=== PATIENT | female | born 1950 | race Caucasian/White ===

== ENCOUNTER 2019-08-17 18:07 | Inpatient (IN) | payer OTHER, MEDICAID ==
[~2019-08-17] VITALS: Ht 149.9 cm; Wt 60.3 kg
--- NOTE | 2019-08-17 18:14 | NUR ---
PT BIB [facility] TO ER BED 6
[2019-08-17 18:15] VITALS: BP 117/50
[2019-08-17] MEDS ORDERED: NACL 0.9% 500 ML IV ONE (18:20)
[2019-08-17] MEDS ORDERED: MORPHINE SULFATE 2 MG/ML SYR IVP ONE (18:20)
--- NOTE | 2019-08-17 18:46 | NUR ---
Xray at bedside
--- NOTE | 2019-08-17 19:22 | NUR ---
69 YEAR OLD FEMALE BIBA FROM HOME, PER DAUGHTER HUY PATIENT REFUSED TO STAY INSIDE OF BED AND ROLLED OFF, CAUSING LEFT HIP PAIN X LAST NIGHT. HUY ALSO STATES THAT PATIENT HAS HAD A RASH ON ABDOMEN SINCE SATURDAY. PER HUY PATIENT IS DOES NOT SEEM ALTERED AND IS ACTING NORMAL, BUT PATIENT IS DEAF AND ROMANIAN SPEAKING. PATIENT ALERT AND AWAKE, BREATHING EVEN AND UNLABORED, SKIN WARM AND DRY. PT ATTACHED TO MONITOR, VSS. BED IN LOWEST POSITION, LOCKED, BED RAIL UPX2. HUY CONTACTED BY PHONE. PMH - HTN, DM2, CELLULITIS ALLERGIES - NKA
[2019-08-17 19:58] LABS: BASOPHILS % (AUTO) 0.3 % (0.0-2.0); EOSINOPHILS # (AUTO) 0.1 K/uL (0-0.4); EOSINOPHILS % (AUTO) 0.4 % (0.0-4.0); HEMATOCRIT 36.9 % (36-48); HEMOGLOBIN 12.1 g/dL (12.0-16.0); LYMPHOCYTES # (AUTO) 1.2 K/uL (2.5-16.5); LYMPHOCYTES % (AUTO) 8.2 % (20.5-51.1); MEAN CORPUSCULAR HEMOGLOBIN 30 pg (27-31); MEAN CORPUSCULAR HGB CONC 33 g/dL (33-37); MEAN CORPUSCULAR VOLUME 91.1 fL (80-94); MONOCYTES # (AUTO) 1.3 K/uL (0.8-1.0); MONOCYTES % (AUTO) 8.5 % (1.7-9.3); NEUTROPHILS # (AUTO) 12.5 K/uL (1.8-7.7); NEUTROPHILS % (AUTO) 82.6 % (42.2-75.2); PLATELET COUNT (AUTO) 186 K/uL (140-450); RED BLOOD CELL COUNT(AUTO) 4.05 MIL/uL (4.20-5.40); RED CELL DISTRIBUTION WIDTH 13.4 % (11.6-13.7); WHITE BLOOD COUNT (AUTO) 15.2 K/uL (4.8-10.8)
[2019-08-17 20:09] LABS: PROTHROMBIN TIME 11.1 secs (10.8-13.4)
[2019-08-17 20:19] LABS: ANION GAP 13.8 (8-16); CARBON DIOXIDE 25.1 mmol/L (21-32); CHLORIDE 102 mmol/L (98-107); CREATININE 1.2 mg/dL (0.6-1.3); GLUCOSE 312 mg/dL (74-106); POTASSIUM 3.9 mmol/L (3.5-5.1); SODIUM SERUM 137 mmol/L (136-145); UREA NITROGEN, BLOOD 15 mg/dL (7-18)
--- NOTE | 2019-08-17 20:32 | NUR ---
Dr. Simpson examining patient.
[2019-08-17] MEDS ORDERED: NACL 0.9% 1,500 ML IV ONE (20:40)
[2019-08-17 20:42] LABS: ALBUMIN 1.4 g/dL (3.4-5.0); ASPARTATE AMINOTRANSFERASE 29 U/L (15-37); TOTAL BILIRUBIN 0.5 mg/dL (0.0-1.0)
--- NOTE | 2019-08-17 20:44 | NUR ---
PATIENT ALERT AND AWAKE, BREATHING EVEN AND UNLABORED. PER HUY ON PHONE PATIENT TOOK CLINDAMYCIN AND AMOXICILLIN SINCE SATURDAY. LENORAD MADE AWARE
[2019-08-17] MEDS ORDERED: cefTRIAXone 1,000 MG VIAL ONE (20:49)
[2019-08-17 21:04] LABS: APPEARANCE,URINE CLEAR (CLEAR); BILIRUBIN,URINE NEGATIVE (NEGATIVE); BLOOD, URINE NEGATIVE (NEGATIVE); COLOR,URINE YELLOW (YELLOW); LEUKOCYTE ESTERASE ,URINE NEGATIVE (NEGATIVE); NITRITE, URINE NEGATIVE (NEGATIVE); UGLUCOSE 3+ (NEGATIVE)
[2019-08-17] MEDS ORDERED: SITA25TA3 PO (21:13)
[2019-08-17] MEDS ORDERED: METF-350 PO (21:13)
--- NOTE | 2019-08-17 21:40 | NUR ---
PATIENT ALERT AND AWAKE, BREAHTING EVEN AND UNLABORED
--- NOTE | 2019-08-17 22:40 | NUR ---
ADMITTED 69 Y/0 FEMALE. RESPIRATION EVEN AND UNLABORED. ON 02 AT 2LPM VIA NC WITH O2 AT 92%. NO SOB. NO PAIN NOTED. IV SITE TO RH 20G. INTACT. INITIAL ASSESSMENT DONE PER PROTOCOL. NOTED SEVERE SKIN RASH AT THE ABDOMEN. NOTED OPEN WOUND ON L BUTTOCKS. RASHES ALL OVER ABDOMEN AREA NOTED. PATIENT IS DEAF. CALL LIGHT WITHIN REACH. WILL CONTINUE TO MONITOR.
--- NOTE | 2019-08-17 22:40 | NUR ---
Patient will be admitted to care of DR MURRY. Admited to TELE. Will go to room 120A. Belongings list completed. Report to LOLY GIL.
[2019-08-17] MEDS: NACL 0.9% 1,000 ML IV SCH (22:54)
[2019-08-17] MEDS ORDERED: ACETAMINOPHEN 325 MG TAB PO PRN (22:55)
[2019-08-17] MEDS ORDERED: MORPHINE SULFATE 2 MG/ML SYR IVP PRN (22:55)
[2019-08-17] MEDS ORDERED: ONDANSETRON 4 MG/2 ML VIAL IM/IVP PRN (22:55)
[2019-08-17] MEDS ORDERED: HYDROcodone/APAP 5/325 MG 1 TAB TAB PO PRN (22:55)
[2019-08-17] MEDS ORDERED: DOCUSATE SODIUM 100 MG GELCAP PO PRN (22:55)
[2019-08-17 23:58] LABS: MAGNESIUM 1.3 mg/dL (1.8-2.4); THYROID STIMULATING HORMONE 0.49 uIU/mL (0.34-3.74)
--- NOTE | 2019-08-18 00:10 | NUR ---
IV SITE TO RH WAS DISLODGED ACCIDENTALLY. WILL RE-INSERT NEW IV LINE. ATTEMPTED X3 WITH GOOD BLOOD RETURN. TOLERATED PROCEDURE WELL.
--- NOTE | 2019-08-18 02:00 | NUR ---
PATIENT IS ASLEEP. NO SOB. CALL LIGHT WITHIN REACH WILL CONTINUE TO MONITOR.
[2019-08-18] MEDS ORDERED: DEXTROSE 50% 50 ML SYR IVP PRN (02:25)
[2019-08-18] MEDS: MAG SULF 2000 MG/WATER PREMIX 50 ML IV SCH ×2 (03:40→06:43)
[2019-08-18 04:00] VITALS: BP 125/57
--- NOTE | 2019-08-18 04:00 | NUR ---
V/S TAKEN AND RECORDED. NO C/O PAIN. CALL LIGHT WITHIN REACH. WILL CONTINUE TO MONITOR.
[2019-08-18] MEDS: NACL 0.9% 1,000 ML IV SCH (05:06)
[2019-08-18] MEDS ORDERED: CLINDAMYCIN 600 MG/4 ML VIAL ONE (05:29)
[2019-08-18] MEDS: CLINDAMYCIN 600 MG in DEXTROSE 5% 50 ML IV SCH ×3 (05:33→20:38)
[2019-08-18] MEDS: BLOOD GLUCOSE MONITORING 1 DEV DEV FS SCH ×4 (06:07→20:38)
[2019-08-18] MEDS: INSULIN LISPRO SLIDING SCALE 100 UNITS/ML VIAL SUBQ PRN ×3 (06:12→17:36)
--- NOTE | 2019-08-18 07:00 | NUR ---
PATIENT IS STABLE. WILL ENDORSE TO AM SHIFT RN FOR CONTINUITY OF CARE.
[2019-08-18 07:18] LABS: BASOPHILS # (AUTO) 0.1 K/uL (0.00-0.22); BASOPHILS % (AUTO) 0.3 % (0.0-2.0); EOSINOPHILS # (AUTO) 0.1 K/uL (0-0.4); EOSINOPHILS % (AUTO) 0.6 % (0.0-4.0); HEMATOCRIT 37.5 % (36-48); HEMOGLOBIN 12.2 g/dL (12.0-16.0); LYMPHOCYTES # (AUTO) 1.8 K/uL (2.5-16.5); LYMPHOCYTES % (AUTO) 9.6 % (20.5-51.1); MEAN CORPUSCULAR HEMOGLOBIN 30 pg (27-31); MEAN CORPUSCULAR HGB CONC 32 g/dL (33-37); MEAN CORPUSCULAR VOLUME 92.4 fL (80-94); MONOCYTES # (AUTO) 1.4 K/uL (0.8-1.0); MONOCYTES % (AUTO) 7.5 % (1.7-9.3); PLATELET COUNT (AUTO) 187 K/uL (140-450); RED BLOOD CELL COUNT(AUTO) 4.06 MIL/uL (4.20-5.40); RED CELL DISTRIBUTION WIDTH 13.6 % (11.6-13.7); WHITE BLOOD COUNT (AUTO) 18.3 K/uL (4.8-10.8)
[2019-08-18 07:58] LABS: CARBON DIOXIDE 21.9 mmol/L (21-32); CHLORIDE 104 mmol/L (98-107); CREATININE 1.1 mg/dL (0.6-1.3); GLUCOSE 288 mg/dL (74-106); POTASSIUM 3.9 mmol/L (3.5-5.1); SODIUM SERUM 138 mmol/L (136-145); UREA NITROGEN, BLOOD 13 mg/dL (7-18)
[2019-08-18 08:00] VITALS: BP 132/55
[2019-08-18 08:11] LABS: CHOL/HDL RATIO 5.7 (1-4.5)
[2019-08-18] MEDS: metFORMIN 850 MG TAB PO SCH ×2 (09:27→17:35)
--- NOTE | 2019-08-18 09:41 | NUR ---
PATIENT HAS BEEN SCREENED AND CATEGORIZED HIGH NUTRITION RISK. PATIENT WILL BE SEEN WITHIN 1-2 DAYS OF ADMISSION. 08/18/19-08/19/[address]
--- NOTE | 2019-08-18 14:57 | NUR ---
08/18/19 RD INITIAL ASSESSMENT COMPLETED PLEASE REFER TO NUTRITION ASSESSMENT UNDER CARE ACTIVITY FOR ESTIMATED NUTRITIONAL NEEDS. 1. RECOMMEND MECHANICAL SOFT CCHO 60GM DIET TOLERATED 2. RECOMMEND KAYLEN BID FOR WOUND HEALING 3. RECOMMEND GLUCERNA BID FOR WOUND HEALING 4. PROVIDE ASSISTANCE WITH MEALS IF NEEDED 5. RD PROVIDED NUTRITION EDUCATION ON WOUNDS/PRESSURE ULCER 6. RD TO FOLLOW-UP 3-5 DAYS, MODERATE RISK JOAO BETH RD
[2019-08-18 15:59] VITALS: BP 106/71
--- NOTE | 2019-08-18 19:15 | NUR ---
RECEIVED BEDSIDE REPORT FROM DAY SHIFT NURSE, SAMUEL PAYNE RESPIRATION EVEN AND UNLABORED WITH ROOM AIR. NO SOB. NO PAIN NOTED. IV SITE TO LFA 22G. INTACT, PATENT, AND ASYMPTOMATIC. INITIAL ASSESSMENT DONE PER PROTOCOL. NOTED SEVERE SKIN RASH AT THE ABDOMEN. NOTED OPEN WOUND ON L BUTTOCKS. RASHES ALL OVER ABDOMEN AREA NOTED. PATIENT IS DEAF. CALL LIGHT WITHIN REACH. WILL CONTINUE TO MONITOR.
--- NOTE | 2019-08-18 19:52 | NUR ---
GIVEN ROCEPHIN MD ORDERED. PT TOLERATED WELL.
[2019-08-18 20:00] VITALS: BP 114/44
--- NOTE | 2019-08-18 20:39 | NUR ---
GIVEN CLEOCIN MD ORDERED. PT TOLERATED WELL.
--- NOTE | 2019-08-18 22:38 | NUR ---
PT SLEEPING IN BED COMFORTABLY. NO ACUTE DISTRESS NOTED.
[2019-08-19] VITALS: BP 120/58
--- NOTE | 2019-08-19 | NUR ---
VS WITHIN PT'S BASELINE. WILL CONTINUE TO MONITOR.
--- NOTE | 2019-08-19 02:10 | NUR ---
PT SLEEPING IN BED COMFORTABLY. NO ACUTE DISTRESS NOTED.
[2019-08-19 04:00] VITALS: BP 128/61
[2019-08-19] MEDS: CLINDAMYCIN 600 MG in DEXTROSE 5% 50 ML IV SCH ×3 (04:00→21:00)
--- NOTE | 2019-08-19 04:00 | NUR ---
VS CHECKED, WITHIN PT'S BASELINE. GIVEN CLEOCIN MD ORDERED. PT TOLERATED WELL.
[2019-08-19] MEDS: INSULIN LISPRO SLIDING SCALE 100 UNITS/ML VIAL SUBQ PRN ×3 (06:06→21:54)
[2019-08-19] MEDS: BLOOD GLUCOSE MONITORING 1 DEV DEV FS SCH ×4 (06:06→21:11)
--- NOTE | 2019-08-19 06:06 | NUR ---
BS CHECKED, 251, GIVEN INSULIN SLIDING SCALE.
[2019-08-19 07:32] LABS: HEMATOCRIT 37.1 % (36-48); HEMOGLOBIN 12.1 g/dL (12.0-16.0); MEAN CORPUSCULAR HEMOGLOBIN 30 pg (27-31); MEAN CORPUSCULAR HGB CONC 33 g/dL (33-37); MEAN CORPUSCULAR VOLUME 91.5 fL (80-94); PLATELET COUNT (AUTO) 157 K/uL (140-450); RED BLOOD CELL COUNT(AUTO) 4.05 MIL/uL (4.20-5.40); RED CELL DISTRIBUTION WIDTH 13.5 % (11.6-13.7); WHITE BLOOD COUNT (AUTO) 20.4 K/uL (4.8-10.8)
[2019-08-19 08:20] LABS: CARBON DIOXIDE 22.9 mmol/L (21-32); CHLORIDE 103 mmol/L (98-107); CREATININE 1.4 mg/dL (0.6-1.3); GLUCOSE 244 mg/dL (74-106); POTASSIUM 3.9 mmol/L (3.5-5.1); SODIUM SERUM 133 mmol/L (136-145); UREA NITROGEN, BLOOD 16 mg/dL (7-18)
[2019-08-19 08:33] LABS: MAGNESIUM 2.2 mg/dL (1.8-2.4); PHOSPHORUS 3.4 mg/dL (2.5-4.9)
[2019-08-19] MEDS: metFORMIN 850 MG TAB PO SCH ×2 (08:34→19:03)
--- NOTE | 2019-08-19 08:34 | NUR ---
Patient resting comfortably in bed with no distress noted. Scheduled medications given as ordered. Patient stable at this time.
[2019-08-19 08:40] VITALS: BP 119/61
[2019-08-19 09:32] LABS: BASOPHILS % (MANUAL) 0 % (0-2); EOSINOPHILS % (MANUAL) 1 % (0-4); LYMPHOCYTES % (MANUAL) 10 % (20-46); MONOCYTES % (MANUAL) 3 % (5-12)
--- NOTE | 2019-08-19 10:50 | NUR ---
Patient asleep with no distress noted at this time.
--- NOTE | 2019-08-19 11:10 | NUR ---
WOUND CARE EVALUATION NOTE: REASON FOR EVALUATION: LOW LETICIA SCALE AND MULTIPLE WOUNDS SKIN ASSESSMENT DONE WITH THIS 69 Y/O FEMALE PT ADMITTED TO [facility] WITH INITIAL DX LEFT HIP PAIN. PAST MEDICAL HX INCLUDES HTN, DM, HEART DISEASE, DEAF AND PT. ADMITTED WITH MULTIPLE PRESSURE ULCER WOUNDS. ALL ABOVE INFORMATION OBTAINED FROM ADMISSION H&P. PT IS AWAKE. COMMUNICATED WITH DRAWING PICTURES. PT SKIN IS WARM AND MOIST, BLE HAIR GROWTH, NO EDEMA. DORSAL PEDAL PULSES PRESENT AND NORMAL. CAPILLARY REFILLED < 2 SEC. X 10 TOES. INCONTINENT OF BOWEL AND BLADDER X1 DURING ASSESSMENT. GENERAL SKIN RASHES WITH RAISE PUMPS FROM NECK DOWN. PT SCRATCHES HER SKIN DURING ASSESSMENT. PLAN OF CARE DISCUSSED WITH PRIMARY RN AND DR. CATHERINE. INTEGUMENTARY: -GENERAL SKIN RASHES WITH RAISE PUMPS FROM NECK DOWN TO TRUNK OF BODY AND ALL EXTREMITIES -PRESSURE ULCER INJURY STAGE 2, LEFT HIP 6X5X0.1CM, WOUND BED IS PINK, NO ODOR, MOIST, JANELLE-WOUND SKIN WITH CONTACT DERMATITIS WITH ERYTHEMA -PRESSURE ULCER INJURY STAGE 4, LEFT ISCHIUM 3X2.5X0.8 CM WOUND BED 100% GRANULATING TISSUE, MOIST, NO ODOR, JANELLE-WOUND SKIN MAD RED AND INTACT. -DIABETIC ULCER UN-STAGEABLE TO LEFT HALLUX 1X1CM, 100% STABLE ESCHAR -PRESSURE ULCER INJURY UN-STAGEABLE, SACROCOCCYX 3X2CM, 100% STABLE ESCHAR JANELLE-WOUND SKIN MOIST -PRESSURE ULCER INJURY UN-STAGEABLE, RIGHT HIP 2 SITES WITH LARGEST 2X1CM, 100% STABLE ESCHAR JANELLE-WOUND SKIN DRY AND SMALLEST 0.8X0.5CM, 100% STABLE ESCHAR JANELLE-WOUND SKIN DRY -DIABETIC ULCER UN-STAGEABLE TO RIGHT PLANTAR AREA TO 5TH METATARSAL 3X3.5CM, 100% STABLE ESCHAR RECOMMENDATIONS: -PLEASE CHECK DRUG REACTIONS/INTERACTIONS -APPLY HYDROCORTISONE CREAM TO RASHES AREA BID AND BORDEREAU CLERK -CLEANSE LEFT BUTTOCK AND LEFT HIP OPEN WOUNDS WITH WOUND CLEANSING SOLUTION AND APPLY HYDROGELGEL COVER WITH DRY DRESSING QD AND PRN IF SOILING -PAINT ALL UN-STAGEABLE ULCERS WITH BETADINE SOLUTION TO SACRAL, RIGHT HIP, RIGHT PLANTAR AND LEFT HALLUX AREAS BID AND OPEN TO AIR -APPLY HEEL PROTECTORS TO BOTH HEELS AT ALLTIMES WHEN IN BED -OFFLOAD BILATERAL HEELS BY PLACING PILLOWS UNDER CALVES UNLESS OTHERWISE CONTRAINDICATED -PRESSURE REDISTRIBUTION SURFACE THERAPY -TURN AND REPOSITION Q2H, OFFLOAD SACRALCOCCYX AND BUTTOCKS BY TURNING RIGHT AND LEFT -CONTINUE TO FOLLOW RD RECOMMENDATIONS ALL ABOVE RECOMMENDATIONS DISCUSSED WITH PRIMARY RN. PLEASE CONTACT WOUND CARE NURSE FOR ANY QUESTION AND CHANGE OF WOUND CONDITION. Addendum: 08/19/19 at 1213 by Joana Murillo RN (Grace) RECOMMEND SNF PLACEMENT OR HOME HEALTH CARE FOLLOW UP WOUND CARE
--- NOTE | 2019-08-19 12:02 | NUR ---
DC PLANIN YRS OLD FEMALE PATIENT WAS ADMITTED FROM HOME WITH A DX OF CVA SEPSIS AND GLUTEAL CELLULITES. PT HAS A HX OF DM, HTN HLD, HEART DISEASE AND SACRAL WOUND. CXR SHOWED CARDIOMEGALY LEFT HIP XRAY PROMINENT SCLEROTIC CHANGES ARTHRITIC CHANGES. ,BLOOD AND URINE CULTURE PENDING STARTED ON IV ABX ROCEPHIN , FALL PRECAUTION ,PT EVAL AND WOUND CARE CONSULTED. DC PLAN TO GO HOME WHEN STABLE. Addendum: 08/21/19 at 1042 by Promise Ng CM DC PLANNING: PT HAS A DISCHARGE ORDER TOGO BACK TO [facility] , BUT C-DIFF AND WOUND CULTURE RESULT PENDING, SPOKE WITH DOMINIQUE AT [facility] STATED FOR ISOLATION ROOM NEEDS THE C-DIFF RESULT. CALLED LAB STATED C-DIFF TAKES 2-3 DAYS . CM TO FOLLOW Addendum: 08/21/19 at 1404 by Promise Ng CM DC PLANNING: C-DIFF NEGATIVE PT HAS A DC ORDER TO GO BACK TO [facility] WITH ANTIBIOTICS. CALLED [facility] SPOKE WITH DOMINIQUE CASTANEDA THE C-DIFF RESULT WAITING FOR THE BED CM TO FOLLOW Addendum: 08/22/19 at 1223 by Promise Ng CM DC PLANNING PT IS ACCEPTED AT [facility] ,CAN GO TO ROOM A NUMBER TO GIVE REPORT [phone] ARRANGED TRANSPORT WITH [facility] AT [phone] WARPER FIXER TIME 2 PM RESERVATION # [id number]. NOTIFIED KAREN GIL Addendum: 08/22/19 at 1231 by Promise Ng CM DC PLANNING: [facility] WILL [facility]ER THE PATIENT AT 4:30 PM RESERVATION # [id number] . NOTIFFLACA JONES RN
[2019-08-19 12:10] VITALS: BP 127/66
--- NOTE | 2019-08-19 12:10 | NUR ---
Scheduled IV abx given per order. Checked blood sugar: 241 mg/dl - will cover per sliding scale. Patient stable at this time.
--- NOTE | 2019-08-19 12:57 | NUR ---
GIVEN 4 UNITS OF INSULIN HUMALOG FOR BS 241 SQ. PATIENT TOLERATED WELL. HELPED REGISTRY NURSE TO ADMINISTER PRN SCHEDULED.
[2019-08-19 16:30] VITALS: BP 118/59
[2019-08-19] MEDS: GAUZE TP SCH (16:30)
--- NOTE | 2019-08-19 16:30 | NUR ---
Wound care done per wound care orders. Patient tolerated well.
[2019-08-19] MEDS: SKINTEGRITY HYDROGEL TP SCH (16:36)
--- NOTE | 2019-08-19 16:50 | NUR ---
Checked blood sugar: 127 mg/dl - no coverage required. Patient resting comfortably in bed. Patient stable.
--- NOTE | 2019-08-19 19:05 | NUR ---
Scheduled med given per order. Started new IVF bag as well. Patient stable throughout shift.
[2019-08-19] MEDS: NACL 0.9% 1,000 ML IV SCH (19:08)
--- NOTE | 2019-08-19 19:45 | NUR ---
A/A/O X2.ZIMBABWEAN SPEAKING ONLY.IVF NS @ 40 ML/HR INFUSING WELL.NO INDICATION OF PAIN NOTED.NOTED RASHES ALL OVER HER BODY.INSTRUCTED TO USE CALL LIGHT NEEDED;WITHIN REACH.
[2019-08-19 20:00] VITALS: BP 102/56
--- NOTE | 2019-08-19 21:00 | NUR ---
FINGER STICK BLD [id number].HUMOLOG 2 UNITS SUB Q ADM.DUE MEDS AD. SNACKS GIVEN.
[2019-08-20] VITALS: BP 116/52
--- NOTE | 2019-08-20 | NUR ---
AFEBRILE.V/S STABLE. TELE SHOWED SR.
--- NOTE | 2019-08-20 02:00 | NUR ---
RESTING COMFORTABLY IN NO ACUTE DISTRESS.IVF INFUSING WELL.
--- NOTE | 2019-08-20 04:00 | NUR ---
V/S STABLE. AFEBRILE. TELE SHOWED SR.
[2019-08-20] MEDS: CLINDAMYCIN 600 MG in DEXTROSE 5% 50 ML IV SCH ×3 (04:49→20:46)
[2019-08-20 05:52] VITALS: BP 127/64
[2019-08-20] MEDS: BLOOD GLUCOSE MONITORING 1 DEV DEV FS SCH ×4 (06:13→21:36)
--- NOTE | 2019-08-20 06:13 | NUR ---
FINGER STICK BLD SUGAR 126.
--- NOTE | 2019-08-20 06:45 | NUR ---
ENDORSED IN NO ACUTE DISTRESS.NO S/S OF HYPO/HYPERGLYCEMIA NOTED.SAFETY MAINTAINED.
--- NOTE | 2019-08-20 07:25 | NUR ---
RECEIVED REPORT FROM NIGHT NURSE REGISTRY. PATIENT IN BED ASLEEP, EASILY AROUSABLE BY NAME OR TOUCH. RESPIRATION EVEN AND UNLABORED. SKIN WARM AND DRY TO TOUCH. IV INTACT AND PATENT TO LEFT FOREARM. NO S/S OF DISTRESS NOTED. BED IN LOW POSITION. SAFETY MEASURES IN PLACE. CALL LIGHT WITHIN REACH.
[2019-08-20 07:40] LABS: BASOPHILS # (AUTO) 0.1 K/uL (0.00-0.22); BASOPHILS % (AUTO) 0.3 % (0.0-2.0); EOSINOPHILS # (AUTO) 0.1 K/uL (0-0.4); EOSINOPHILS % (AUTO) 0.6 % (0.0-4.0); HEMATOCRIT 37.2 % (36-48); HEMOGLOBIN 12.3 g/dL (12.0-16.0); LYMPHOCYTES # (AUTO) 1.6 K/uL (2.5-16.5); LYMPHOCYTES % (AUTO) 8.2 % (20.5-51.1); MEAN CORPUSCULAR HEMOGLOBIN 30 pg (27-31); MEAN CORPUSCULAR HGB CONC 33 g/dL (33-37); MEAN CORPUSCULAR VOLUME 91.1 fL (80-94); MONOCYTES # (AUTO) 1.1 K/uL (0.8-1.0); MONOCYTES % (AUTO) 5.6 % (1.7-9.3); NEUTROPHILS # (AUTO) 16.8 K/uL (1.8-7.7); NEUTROPHILS % (AUTO) 85.3 % (42.2-75.2); PLATELET COUNT (AUTO) 144 K/uL (140-450); RED BLOOD CELL COUNT(AUTO) 4.08 MIL/uL (4.20-5.40); RED CELL DISTRIBUTION WIDTH 13.8 % (11.6-13.7); WHITE BLOOD COUNT (AUTO) 19.7 K/uL (4.8-10.8)
[2019-08-20 08:00] VITALS: BP 111/50
[2019-08-20] MEDS: metFORMIN 850 MG TAB PO SCH ×2 (08:05→17:36)
[2019-08-20] MEDS: HYDROCORTISONE 2.5% OINT 30 GM TUBE TP SCH (08:06)
--- NOTE | 2019-08-20 08:30 | NUR ---
PATIENT WITH HOB ELEVATED EATING BREAKFAST. NO S/S OF DISTRESS NOTED. AM MEDICATIONS GIVEN AND TOLERATED WELL.
[2019-08-20 08:44] LABS: MAGNESIUM 1.8 mg/dL (1.8-2.4); PHOSPHORUS 4.1 mg/dL (2.5-4.9)
[2019-08-20 09:07] LABS: ANION GAP 14.1 (8-16); CHLORIDE 105 mmol/L (98-107); CREATININE 1.3 mg/dL (0.6-1.3); GLUCOSE 134 mg/dL (74-106); POTASSIUM 4.1 mmol/L (3.5-5.1); SODIUM SERUM 136 mmol/L (136-145); UREA NITROGEN, BLOOD 20 mg/dL (7-18)
--- NOTE | 2019-08-20 10:27 | NUR ---
Utility Person Note: CAM contacted patient's son to complete assessment [phone] (name is not in face sheet). SW left voicemail. CAM will follow up
--- NOTE | 2019-08-20 10:30 | NUR ---
PATIENT REMAINS STABLE. PATIENT IN BED ASLEEP, EASILY AROUSABLE BY NAME. RESPIRATION EVEN AND UNLABORED. CALL LIGHT WITHIN REACH.
[2019-08-20 12:00] VITALS: BP 133/70
--- NOTE | 2019-08-20 13:00 | NUR ---
PATIENT IN BED, EATING LUNCH. NO S/S OF DISTRESS NOTED.
[2019-08-20] MEDS: SKINTEGRITY HYDROGEL TP SCH (13:01)
[2019-08-20] MEDS: GAUZE TP SCH (13:01)
[2019-08-20 16:00] VITALS: BP 120/55
--- NOTE | 2019-08-20 16:30 | NUR ---
PATIENT REMAINS STABLE. AWAKE AND VERBALLY RESPONSIVE. NO S/S OF DISTRESS NOTED.
--- NOTE | 2019-08-20 18:42 | NUR ---
PATIENT IN BED, EATING DINNER. NO S/S OF DISTRESS NOTED.
--- NOTE | 2019-08-20 19:45 | NUR ---
A/A/O X2. NO INDICATION OF PAIN NOTED. NO SOB.RASHES ALL OVER HER BODY.IVF NS @ 40 ML/HR INFUSING WELL.REFUSED TO EAT HER FOOD TRAY @ THE BS BUT LIKES PO LIQUID. DRESSING ON HER LEFT HIP & LEFT BUTTOCK INTACT. REPOSITIONED.
[2019-08-20 20:00] VITALS: BP 142/69
--- NOTE | 2019-08-20 20:00 | NUR ---
AFEBRILE .TELE SHOWED SR.
[2019-08-20] MEDS: INSULIN LISPRO SLIDING SCALE 100 UNITS/ML VIAL SUBQ PRN (21:36)
--- NOTE | 2019-08-20 21:36 | NUR ---
FINGER STICK BLD SUGAR 156.HUMOLOG 2 UNITS SUB Q ADM.SNACK GIVEN.
[2019-08-20] MEDS: NACL 0.9% 1,000 ML IV SCH (22:35)
[2019-08-21] VITALS: BP 141/69
--- NOTE | 2019-08-21 | NUR ---
CLEAN PT WITH CORPORATE TAX MANAGER.HAD LARGE LOOSE GREENISH STOOL.DRESSING ON HER LEFT HIP & LEFT BUTTOCK CHANGE. REPOSITIONED.
--- NOTE | 2019-08-21 02:00 | NUR ---
RESTING COMFORTABLY IN NO ACUTE DISTRESS.IVF INFUSING WELL.
[2019-08-21 04:00] VITALS: BP 112/64
--- NOTE | 2019-08-21 04:00 | NUR ---
AFEBRILE.V/S STABLE.TELE SHOWED SR WITH BBB.
--- NOTE | 2019-08-21 05:00 | NUR ---
AM CARE RENDERED WITH FISH GRADER.LEFT HIP & LEFT BUTTOCK DRESSING CHANGE ,HAD LARGE LOOSE GREENISH STOOL. REPOSITIONED.
[2019-08-21] MEDS: CLINDAMYCIN 600 MG in DEXTROSE 5% 50 ML IV SCH ×3 (05:32→20:59)
--- NOTE | 2019-08-21 06:50 | NUR ---
IV INFILTRATED & D/C.IV INSERTED ON HER RIGHT HAND WITH ANGIO #22 X3.IVF NS @ 40 ML/HR INFUSING WELL.
--- NOTE | 2019-08-21 07:00 | NUR ---
ENDORSED RESTING COMFORTABLY IN NO ACUTE DISTRESS.NO S/S OF HYPO/HYPERGLYCEMIA NOTED.SAFETY MAINTAINED.
[2019-08-21] MEDS: INSULIN LISPRO SLIDING SCALE 100 UNITS/ML VIAL SUBQ PRN (07:01)
[2019-08-21] MEDS: BLOOD GLUCOSE MONITORING 1 DEV DEV FS SCH ×4 (07:02→21:04)
--- NOTE | 2019-08-21 07:05 | NUR ---
RECEIVED BEDSIDE REPORT FROM NIGHTSHIFT NURSE. PT RESTING IN BED. ABLE TO MAKE SOME NEEDS KNOWN. RESPIRATIONS EVEN AND UNLABORED WITH NO SOB OR RESPIRATORY DISTRESS. SKIN WARM AND DRY TO TOUCH. IV SITE IN RIGHT HAND 20G IS CLEAN, DRY, AND INTACT. SAFETY MEASURES IN PLACE. WILL CONTINUE TO MONITOR
[2019-08-21 07:54] LABS: BASOPHILS # (AUTO) 0.1 K/uL (0.00-0.22); BASOPHILS % (AUTO) 0.4 % (0.0-2.0); EOSINOPHILS # (AUTO) 0.1 K/uL (0-0.4); EOSINOPHILS % (AUTO) 0.6 % (0.0-4.0); HEMATOCRIT 40.5 % (36-48); HEMOGLOBIN 13.4 g/dL (12.0-16.0); LYMPHOCYTES # (AUTO) 1.7 K/uL (2.5-16.5); LYMPHOCYTES % (AUTO) 8.1 % (20.5-51.1); MEAN CORPUSCULAR HEMOGLOBIN 30 pg (27-31); MEAN CORPUSCULAR HGB CONC 33 g/dL (33-37); MEAN CORPUSCULAR VOLUME 91.9 fL (80-94); MONOCYTES % (AUTO) 4.8 % (1.7-9.3); NEUTROPHILS # (AUTO) 17.7 K/uL (1.8-7.7); NEUTROPHILS % (AUTO) 86.1 % (42.2-75.2); PLATELET COUNT (AUTO) 155 K/uL (140-450); RED CELL DISTRIBUTION WIDTH 13.6 % (11.6-13.7); WHITE BLOOD COUNT (AUTO) 20.5 K/uL (4.8-10.8)
[2019-08-21 07:57] LABS: MAGNESIUM 1.6 mg/dL (1.8-2.4); PHOSPHORUS 4.1 mg/dL (2.5-4.9)
[2019-08-21 07:59] LABS: ANION GAP 14.5 (8-16); CARBON DIOXIDE 22.8 mmol/L (21-32); CHLORIDE 101 mmol/L (98-107); CREATININE 1.3 mg/dL (0.6-1.3); GLUCOSE 203 mg/dL (74-106); POTASSIUM 4.3 mmol/L (3.5-5.1); SODIUM SERUM 134 mmol/L (136-145); UREA NITROGEN, BLOOD 20 mg/dL (7-18)
[2019-08-21 08:00] VITALS: BP 105/60
[2019-08-21] MEDS: HYDROCORTISONE 2.5% OINT 30 GM TUBE TP SCH (08:29)
[2019-08-21] MEDS: metFORMIN 850 MG TAB PO SCH ×2 (08:29→17:06)
--- NOTE | 2019-08-21 08:29 | NUR ---
ADMINISTERED SCHED MED PRESCRIBED PER MD ORDER. PT TOLERATED WELL. MEDICATION EDUCATION PERFORMED. PT UNABLE TO VERBALIZE UNDERSTANDING. SAFETY MEASURES IN PLACE. WILL CONTINUE TO MONITOR
--- NOTE | 2019-08-21 10:15 | NUR ---
HOURLY ROUNDING. PT RESTING IN BED AND TALKING TO FAMILY ON THE PHONE. FLACC 0. RESPIRATIONS EVEN AND UNLABORED WITH NO SOB OR RESPIRATORY DISTRESS. SKIN WARM AND DRY TO TOUCH. SAFETY MEASURES IN PLACE. WILL CONTINUE TO MONITOR
[2019-08-21] MEDS ORDERED: MAGNESIUM OXIDE 400 MG TAB PO SCH (11:29)
--- NOTE | 2019-08-21 11:30 | NUR ---
PT BLOOD SUGAR IS 102. NO INSULIN COVERAGE NEEDED AT THIS TIME. SAFETY MEASURES IN PLACE. WILL CONTINUE TO MONITOR
[2019-08-21] MEDS ORDERED: HYD2.5O TP (11:47)
[2019-08-21] MEDS ORDERED: SITA50TA3 PO (11:47)
[2019-08-21] MEDS ORDERED: HYDGEL TP (11:47)
[2019-08-21] MEDS ORDERED: METF850T PO (11:47)
[2019-08-21] MEDS ORDERED: Gauze TP (11:47)
[2019-08-21] MEDS ORDERED: CLIN600P4 IV (11:47)
--- NOTE | 2019-08-21 11:49 | NUR ---
ADMINISTERED SCHED MED PRESCRIBED PER MD ORDER. PT TOLERATED WELL. MEDICATION EDUCATION PERFORMED. PT UNABLE TO VERBALIZE UNDERSTANDING. SAFETY MEASURES IN PLACE. WILL CONTINUE TO MONITOR
[2019-08-21 12:00] VITALS: BP 105/64
--- NOTE | 2019-08-21 12:30 | NUR ---
PT IS AWARE OF DISCHARGE TO [facility]. SAFETY MEASURES IN PLACE. WILL CONTINUE TO MONITOR
[2019-08-21] MEDS: GAUZE TP SCH (13:01)
[2019-08-21] MEDS: SKINTEGRITY HYDROGEL TP SCH (13:01)
--- NOTE | 2019-08-21 13:07 | NUR ---
ADMINISTERED SCHED MED PRESCRIBED PER MD ORDER. PT TOLERATED WELL. MEDICATION EDUCATION PERFORMED. PT UNABLE TO VERBALIZE UNDERSTANDING. SAFETY MEASURES IN PLACE. WILL CONTINUE TO MONITOR
[2019-08-21] MEDS ORDERED: FLUCONAZOLE 200 MG/NS PREMIX 100 ML IV SCH (15:00)
--- NOTE | 2019-08-21 15:38 | NUR ---
ADMINISTERED SCHED MED PRESCRIBED PER MD ORDER. PT TOLERATED WELL. MEDICATION EDUCATION PERFORMED. PT UNABLE TO VERBALIZE UNDERSTANDING. SAFETY MEASURES IN PLACE. WILL CONTINUE TO MONITOR
[2019-08-21 16:00] VITALS: BP 114/64
--- NOTE | 2019-08-21 16:30 | NUR ---
PT BLOOD SUGAR IS 115. NO INSULIN COVERAGE NEEDED AT THIS TIME. SAFETY MEASURES IN PLACE. WILL CONTINUE TO MONITOR
--- NOTE | 2019-08-21 17:06 | NUR ---
ADMINISTERED SCHED MED PRESCRIBED PER MD ORDER. PT TOLERATED WELL. MEDICATION EDUCATION PERFORMED. PT UNABLE TO VERBALIZE UNDERSTANDING. SAFETY MEASURES IN PLACE. WILL CONTINUE TO MONITOR
--- NOTE | 2019-08-21 19:15 | NUR ---
ENDORSED AT BEDSIDE TO NIGHTSHIFT NURSE. PT IS STABLE
--- NOTE | 2019-08-21 19:16 | NUR ---
RECEIVED ENDORSEMENT AT BEDSIDE FROM AM SHIFT RN. PATIENT IS LYING IN BED. RESPIRATION EVEN AND UNLABORED. NO SOB. NO PAIN NOTED. LOW BED AND BED ALARM IN PLACE. WITH IVF INFUSING. PLAN OF CARE WAS DISCUSSED. CALL LIGHT WITHIN REACH. WILL CONTINUE TO MONITOR.
[2019-08-21 20:00] VITALS: BP 104/50
--- NOTE | 2019-08-21 21:00 | NUR ---
DUE MED GIVEN ORDERED. NO A/R NOTED. TOLERATED WELL. WILL CONTINUE TO MONITOR.
[2019-08-21] MEDS: NACL 0.9% 1,000 ML IV SCH (22:54)
[2019-08-22] VITALS: BP 132/66
--- NOTE | 2019-08-22 | NUR ---
VITAL SIGNS TAKEN AND RECORDED. DENIES PAIN. KEPT COMFORTABLE. WILL CONTINUE TO MONITOR.
[2019-08-22 04:00] VITALS: BP 115/63
--- NOTE | 2019-08-22 04:30 | NUR ---
PATIENT IS RESTING. NO PAIN NOTED. PATIENT CARE DONE. CALL LIGHT WITHIN REACH. WILL CONTINUE TO MONITOR.
[2019-08-22] MEDS: NACL 0.9% 1,000 ML IV SCH (05:07)
[2019-08-22] MEDS: CLINDAMYCIN 600 MG in DEXTROSE 5% 50 ML IV SCH ×2 (05:08→13:21)
[2019-08-22 05:23] LABS: BASOPHILS # (AUTO) 0.1 K/uL (0.00-0.22); BASOPHILS % (AUTO) 0.5 % (0.0-2.0); EOSINOPHILS # (AUTO) 0.1 K/uL (0-0.4); EOSINOPHILS % (AUTO) 0.7 % (0.0-4.0); HEMATOCRIT 37.8 % (36-48); HEMOGLOBIN 12.5 g/dL (12.0-16.0); LYMPHOCYTES # (AUTO) 1.5 K/uL (2.5-16.5); LYMPHOCYTES % (AUTO) 8.8 % (20.5-51.1); MEAN CORPUSCULAR HEMOGLOBIN 30 pg (27-31); MEAN CORPUSCULAR HGB CONC 33 g/dL (33-37); MEAN CORPUSCULAR VOLUME 91.1 fL (80-94); MONOCYTES # (AUTO) 0.9 K/uL (0.8-1.0); MONOCYTES % (AUTO) 5.2 % (1.7-9.3); NEUTROPHILS # (AUTO) 14.8 K/uL (1.8-7.7); NEUTROPHILS % (AUTO) 84.8 % (42.2-75.2); PLATELET COUNT (AUTO) 133 K/uL (140-450); RED BLOOD CELL COUNT(AUTO) 4.15 MIL/uL (4.20-5.40); RED CELL DISTRIBUTION WIDTH 13.8 % (11.6-13.7); WHITE BLOOD COUNT (AUTO) 17.5 K/uL (4.8-10.8)
[2019-08-22 05:47] LABS: ANION GAP 14.8 (8-16); CARBON DIOXIDE 20.7 mmol/L (21-32); CHLORIDE 105 mmol/L (98-107); CREATININE 1.3 mg/dL (0.6-1.3); GLUCOSE 115 mg/dL (74-106); POTASSIUM 4.5 mmol/L (3.5-5.1); SODIUM SERUM 136 mmol/L (136-145); UREA NITROGEN, BLOOD 19 mg/dL (7-18)
[2019-08-22] MEDS: BLOOD GLUCOSE MONITORING 1 DEV DEV FS SCH ×2 (06:29→11:30)
[2019-08-22 06:51] LABS: MAGNESIUM 1.8 mg/dL (1.8-2.4); PHOSPHORUS 4.2 mg/dL (2.5-4.9)
--- NOTE | 2019-08-22 07:20 | NUR ---
PATIENT IS RESTING. NO SOB. GAVE BEDSIDE REPORT TO AM SHIFT RN FOR CONTINUITY OF CARE.
--- NOTE | 2019-08-22 07:21 | NUR ---
RECEIVED REPORT FROM LEADERSHIP PROGRAM INTERNSHIP NURSE, FOR CONTINUITY OF CARE. PT IS IN STABLE CONDITION. AA&OX2. SPANISH SPEAKING. R H 22G IV IS PATENT AND INTACT, AND INFUSING PER ORDERS. RESPIRATIONS ARE EVEN AND UNLABORED, BREATHING TO RA. PLAN OF CARE REVIEWED WITH PT. SAFETY MEASURES IN PLACE; BED IN LOW POSITION, CALL LIGHT WITHIN REACH, BED ALARM ON, SIGN POSTED. WILL CONTINUE TO MONITOR.
[2019-08-22] MEDS: metFORMIN 850 MG TAB PO SCH (09:29)
--- NOTE | 2019-08-22 09:30 | NUR ---
SCHEDULED MEDS DUE, GIVEN. PT TOLERATED PO MEDS WELL. MEDICATION EDUCATION GIVEN. HYDROCORTISONE CREAM APPLIED TO BODY. NO DISTRESS NOTED. WILL CONTINUE TO MONITOR.
[2019-08-22] MEDS: HYDROCORTISONE 2.5% OINT 30 GM TUBE TP SCH (09:32)
--- NOTE | 2019-08-22 11:45 | NUR ---
PT'S BGL: 133. NO COVERAGE NEEDED.
--- NOTE | 2019-08-22 12:31 | NUR ---
RECEIVED CALL FROM [facility]. PER [facility], THE PT IS TO BE TRANSFERRED TODAY [place] [facility] [place]. TRANSPORTATION TO ARRIVE AT 4:30.
--- NOTE | 2019-08-22 13:00 | NUR ---
PICTURES TAKEN OF WOUNDS. HYDROGEL APPLIED TO OPEN WOUNDS AND BETADINE APPLIED TO SCABS. NO DISTRESS NOTED.
--- NOTE | 2019-08-22 13:26 | NUR ---
PT'S SCHEDULED ANTIBIOTIC HUNG, AND RUNNING PER ORDERS. NO DISTRESS NOTED.
[2019-08-22] MEDS: SKINTEGRITY HYDROGEL TP SCH (13:40)
[2019-08-22] MEDS: GAUZE TP SCH (13:41)
[2019-08-22 15:34] VITALS: BP 117/57
--- NOTE | 2019-08-22 16:02 | NUR ---
SPOKE WITH PT'S GRANDDAUGHTER, AND INFORMED HER OF PT'S UPCOMING TRANSFER TO [facility]. THE ADDRESS AND PHONE NUMBER OF [facility] PROVIDED TO GRANDDAUGHTER. PT'S SON, NICO HOBBS, WAS CALLED AND INFORMED OF TRANSFER. NICO: [phone]. REPORT GIVEN TO LYLA AT [facility].
--- NOTE | 2019-08-22 17:55 | NUR ---
PT'S ARM BANDS AND TELE MONITOR REMOVED. PT'S BELONGINGS IN HER POSSESSION. TRANSPORT PERSONNEL ESCORTED PT OFF OF THE UNIT VIA GURNEY FOR TRANSFER TO [facility]. PT IS IN STABLE CONDITION.
== END 2019-08-22 17:55 | DRG 871 ==
LOC: MED 18:07 → MTU 22:15
PROVIDERS: ADMIT General Practice; ATTEND General Practice
DX: A41.9 Sepsis, unspecified organism (principal); E43 Unspecified severe protein-calorie malnutrition; J18.9 Pneumonia, unspecified organism; N17.0 Acute kidney failure with tubular necrosis; L03.116 Cellulitis of left lower limb; L03.317 Cellulitis of buttock; Z68.26 Body mass index [BMI] 26.0-26.9, adult; E78.00 Pure hypercholesterolemia, unspecified; I10 Essential (primary) hypertension; I25.10 Atherosclerotic heart disease of native coronary artery without angina pectoris; S70.212A Abrasion, left hip, initial encounter; W06.XXXA Fall from bed, initial encounter; E11.65 Type 2 diabetes mellitus with hyperglycemia; E83.42 Hypomagnesemia; L89.159 Pressure ulcer of sacral region, unspecified stage; Y93.89 Activity, other specified; Y99.8 Other external cause status; Y92.003 Bedroom of unspecified non-institutional (private) residence as the place of occurrence of the external cause; Z88.0 Allergy status to penicillin
CPT/HCPCS: 36415; 71045; 73502; 80048; 80053; 81003; 82553; 82948; 83036; 83605; 83690; 83735; 83880; 84100; 84443; 85025; 85610; 85730; 87040; 87070; 87081; 87086; 96361; 96365; 96375; 97110; 97112; 97161-GP; 97530; 99291; A6248; J0696; J1450; J1815; J2270; J3475; J3490; J7030; J7060; Q0092